=== PATIENT | female | born 1995 | race Caucasian/White ===

== ENCOUNTER 2017-04-24 05:11 | Inpatient (IN) | payer OTHER ==
[~2017-04-24] VITALS: Ht 165.1 cm; Wt 81.8 kg
[2017-04-24] VITALS (30 sets, daily range): BP systolic 102–146; BP diastolic 50–77; PULSE 64–133; TEMP 97.7–98.8
[2017-04-24] MEDS ORDERED: PRENATAL1 TA7 PO (05:56)
[2017-04-24 06:15] LABS: BASO % 0.2 % (0.0-2.0); EOS % 0.3 % (0-4.0); GRAN # 6.3 (1.4-6.5); GRAN % 62.9 % (42.2-75.2); MEAN CELL VOLUME 84 fl (80.0-100.0); MEAN CORPUSCULAR HGB CONC 33 g/dl (33.0-37.0); MEAN PLATELET VOLUME 10.8 fl (7.4-10.4); MONO # 0.6 (0.1-0.6); MONO % 6.3 % (1.7-9.3); PLATELET COUNT 278 K/mm3 (130-400); RED BLOOD COUNT 4.07 M/mm3 (4.10-5.30); REDCELL DISTRIBUTION WIDTH-CV 13.4 % (11.5-14.5)
[2017-04-24 06:22] LABS: HEMATOCRIT 34.2 % (37.0-47.0); HEMOGLOBIN 11.3 g/dl (12.5-16.0); MEAN CORPUSCULAR HEMOGLOBIN 28 pg (27.0-31.0)
[2017-04-25 00:10] VITALS: BP 103/52; PULSE 86; TEMP 98.1
[2017-04-25 07:45] VITALS: BP 124/76; PULSE 99; TEMP 97.9
[2017-04-25 16:15] VITALS: BP 117/62; PULSE 83; TEMP 98.2
[2017-04-25 22:00] VITALS: BP 117/65; PULSE 84; TEMP 98.4
[2017-04-26 07:26] VITALS: BP 114/64; PULSE 72; TEMP 98.1
[2017-04-26] MEDS ORDERED: MOTRIN 600600 MG/TAB PO (08:29)
[2017-04-26] MEDS ORDERED: PERCOCET 325 MG1 TA2 PO (08:29)
[2017-04-26 12:57] VITALS: BP 100/64; PULSE 78; TEMP 98.1
== END 2017-04-26 13:05 | disposition home or self-care (01) | DRG 775 ==
LOC: LDRO 05:11 → LDR 05:31 → OB 05:31
PROVIDERS: Obstetrics & Gynecology
PROC: 10E0XZZ Delivery of Products of Conception, External Approach (ICD-10-PCS; principal; 2017-04-24)
PROC: 0W8NXZZ Division of Female Perineum, External Approach (ICD-10-PCS; 2017-04-24)
DX: O36.0130 Maternal care for anti-D [Rh] antibodies, third trimester, not applicable or unspecified (principal); Z3A.39 39 weeks gestation of pregnancy; Z37.0 Single live birth
CPT/HCPCS: J2590; J2791; J7120